=== PATIENT | male | born 1985 | race Caucasian/White ===

== ENCOUNTER 2023-10-26 19:42 | Emergency (ER) | payer OTHER, SELFPAY ==
[2023-10-26 19:42] VITALS: BMI 26.8
[2023-10-26 19:44] VITALS: BP 149/107
--- NOTE | 2023-10-26 20:55 | ED.GENMED ---
History of Present Illness
<Russel Coon PA-C - Last Filed: 10/27/23 01:11>
General
Chief Complaint: Head Injury
Time Seen by Provider: 10/26/23 20:39
Travel History
Have you had any contact with someone who has COVID-19?: No
Do you have any symptoms of coronavirus? Fever > 100 degrees, chills, cough, shortness of breath, sore throat, loss of taste or smell, muscle aches, or headache?: No
History of Present Illness
History of Present Illness:
38-year-old male with history of GERD and substance abuse currently on methadone presents to the emergency department after a mechanical fall while rollerskating. He fell backwards and struck his head and neck on the ground. He reports mild
headache and severe neck pain currently. He reports a brief episode of left upper extremity paresthesias that is now resolved. Denies any chest pain but does report shortness of breath, admits he is becoming increasingly anxious that his symptoms
and feels this may be triggering an asthma attack.
Past History
<Russel Coon PA-C - Last Filed: 10/27/23 01:11>
Past History
ED Past Medical History: Asthma and Other (Narcotic addiction)
ED Past Surgical History: None
Social History
Tobacco: Smoker
Alcohol: None
Drug: Former user
Personal:
Living: with family
Review of Systems
<Russel Coon PA-C - Last Filed: 10/27/23 01:11>
Review of Systems
Allergies reviewed?: Yes
All Other Systems: ROS reviewed and negative except as documented in HPI and ROS
Phy Exam
<Russel Coon PA-C - Last Filed: 10/27/23 01:11>
Physical Exam
Physical Exam:
GEN: Well appearing, NAD, WDWN
HEENT: Normocephalic and atraumatic , oral mucosa moist, no scleral icterus. Cervical spine exam performed patient in C-spine precautions, he has reproducible tenderness to the inferior midline cervical spine
Cardiac: Regular rate
Lung: No respiratory distress, no tachypnea
MSK: No gross deformity or injuries
Skin: Good color, no pallor or jaundice, no rashes
Neuro: AO x3; CN II-XII grossly intact. BUE strength 5/5 in all berg, sensation intact and symmetric. BLE strength 5/5 in all berg, sensation intact and symmetric
Psych: Calm, cooperative
Course
<Russel Coon PA-C - Last Filed: 10/27/23 01:11>
Orders/Labs/Results
Orders:
Orders
10/26/23 19:49
CT Head W/o Iv Contrast Urgent
Comment:
Reason For Exam: fall with head strike
Cervical Spine wo Contrast CT [CT Cervical Spine W/o Iv Contr] Urgent
Comment:
Reason For Exam: fall with head strike
10/26/23 20:56
CR Chest Portable - 1 View Urgent
Comment:
Reason For Exam: trauma
Reason Study Needs to be Portable: Other
10/26/23 21:08
Lorazepam [Ativan] 1 mg IV NOW STA
10/26/23 21:12
Complete Blood Count/With Diff Urgent
Comprehensive Metabolic Panel Urgent
10/26/23 21:52
Fentanyl Citrate/Pf [Sublimaze] 75 mcg IV NOW STA
Abnormal Lab Results
10/26/23
21:12
WBC 15.3 H 10^3/uL
(4.8-10.8)
RBC 4.61 L 10^6/uL
(4.70-6.10)
MPV 10.5 H fL
(7.4-10.4)
Abs Immat Gran (auto) 0.6 H 10^3/uL
(0-0.05)
Absolute Neuts (auto) 9.6 H 10^3/uL
(1.4-6.5)
Absolute Lymphs (auto) 3.9 H 10^3/uL
(1.2-3.4)
Absolute Monos (auto) 1.0 H 10^3/uL
(0.1-0.6)
Immature Gran % 4.1 H %
(0-0.5)
10/26/23 21:12
10/26/23 21:12
Vital Signs
Initial and Last Documented VS:
Initial Vital Signs
Temp Pulse Resp BP Pulse Ox
98.2 F 105 18 149/107 100
10/26/23 19:44 10/26/23 19:44 10/26/23 19:44 10/26/23 19:44 10/26/23 19:44
Last Documented Vital Signs
Temp Pulse Resp BP Pulse Ox
98.2 F 104 14 143/102 94
10/26/23 19:44 10/26/23 22:15 10/26/23 22:15 10/26/23 22:00 10/26/23 22:15
<Genie Montano MD - Last Filed: 10/26/23 22:04>
Orders/Labs/Results
Orders:
Orders
10/26/23 19:49
CT Head W/o Iv Contrast Urgent
Comment:
Reason For Exam: fall with head strike
Cervical Spine wo Contrast CT [CT Cervical Spine W/o Iv Contr] Urgent
Comment:
Reason For Exam: fall with head strike
10/26/23 20:56
CR Chest Portable - 1 View Urgent
Comment:
Reason For Exam: trauma
Reason Study Needs to be Portable: Other
10/26/23 21:08
Lorazepam [Ativan] 1 mg IV NOW STA
10/26/23 21:12
Complete Blood Count/With Diff Urgent
Comprehensive Metabolic Panel Urgent
10/26/23 21:52
Fentanyl Citrate/Pf [Sublimaze] 75 mcg IV NOW STA
Abnormal Lab Results
10/26/23
21:12
WBC 15.3 H 10^3/uL
(4.8-10.8)
RBC 4.61 L 10^6/uL
(4.70-6.10)
MPV 10.5 H fL
(7.4-10.4)
Abs Immat Gran (auto) 0.6 H 10^3/uL
(0-0.05)
Absolute Neuts (auto) 9.6 H 10^3/uL
(1.4-6.5)
Absolute Lymphs (auto) 3.9 H 10^3/uL
(1.2-3.4)
Absolute Monos (auto) 1.0 H 10^3/uL
(0.1-0.6)
Immature Gran % 4.1 H %
(0-0.5)
10/26/23 21:12
10/26/23 21:12
Vital Signs
Initial and Last Documented VS:
Initial Vital Signs
Temp Pulse Resp BP Pulse Ox
98.2 F 105 18 149/107 100
10/26/23 19:44 10/26/23 19:44 10/26/23 19:44 10/26/23 19:44 10/26/23 19:44
Last Documented Vital Signs
Temp Pulse Resp BP Pulse Ox
98.2 F 104 14 143/102 94
10/26/23 19:44 10/26/23 22:15 10/26/23 22:15 10/26/23 22:00 10/26/23 22:15
<Russel Coon PA-C - Last Filed: 10/27/23 01:11>
MDM/Problems Addressed
MDM/Problems Addressed:
Patient identified unfortunately to have a C7 burst type compression fracture. He has no focal neurologic deficits. I discussed the case initially with neurosurgery on-call who recommend transfer to [facility] for further evaluation as a
trauma patient, the patient declines transfer to [facility] and request [facility]. Discussed the case with trauma surgery at [facility] who accepts as a level 2 transfer. Remained clinically stable with no neurologic deficits in the emergency
department
<Russel Coon PA-C - Last Filed: 10/27/23 01:11>
*Critical Care Note
Total Time (30-74mins, 75-104mins- exclusive of procedures): Not Applicable
ED Attending Note
<Russel Coon PA-C - Last Filed: 10/27/23 01:11>
-
Portions of this chart may have been created with voice recognition software.� Occasional wrong word or��sound alike� substitutions may have occurred due to the inherent limitations of voice recognition software.
<Genie Montano MD - Last Filed: 10/26/23 22:04>
ED Attending Note
Patient seen and examined by attending physician: Yes
I performed the substantive portion of visit, reviewed & personally made and approve the management plan that is documented in note by myself or JAMAR.: Yes
ED Attending Note:
38-year-old male who was rollerskating, fell backwards, hitting the back of his head. He has noted neck discomfort ever since. He denies numbness, tingling, weakness, chest pain, shortness of breath.pt does have a mildheadache. On exam,pt in a
collar, PERRL, mmm. Motor 5/5 ue=le, sens intact, speech clear. C7 burst fx noted, no neuro sxs or findings. Continue collar/immobilization, [facility], pain control.
Discharge Plan
Departure
Patient Disposition: Acute Care Hospital
Date of Disposition: 10/26/23
Time of Disposition: 20:55
Discharge Problem:
Compression fracture of C7 vertebra
Prescriptions:
No Action
albuterol sulfate 1 PUFF HFA aerosol inhaler
1 puff inhalation R Q4HPRN PRN (Reason: Shortness of breath)
methadone [Methadose] 10 MG/ML concentrate
180 mg PO DAILY
Patient Comments:
12/11/2022: goes to [facility] in [place] [address]. Dispensary Hours [facility] [phone], [employer] [phone]
12/12/22: dose confirmed with [facility]
methadone [Methadose] 10 MG/ML concentrate
140 mg PO QPM
Patient Comments:
12/11/2022: goes to [facility] in [place] [address]. Dispensary Hours [facility] [phone], [employer] [phone]
12/12/22: dose confirmed with [facility]
albuterol sulfate 2.5 MG/3 ML solution for nebulization
2.5 mg inhalation R Q4HPRN PRN (Reason: short of breath, wheezing) Qty: 30 0RF
montelukast 10 mg Tablet
10 mg PO HS
prednisone 10 MG tablet
30 mg PO DAILY
Hospital Transfer
Other hospital: [facility]
I certify that the patient requires transfer: Yes
Discussed case with accepting physician: Lucy
Reason for transfer: higher level of care
Interventions
Interventions:
*Risk Screen - Suicide Last Done: 10/26/23 19:44
*General Assessment Last Done: 10/26/23 19:44
*Neglect/Abuse Screening Last Done: 10/26/23 19:44
*ED COVID-19 Vaccine History Last Done: 10/26/23 19:44
*Nursing Disposition Last Done: 10/26/23 22:30
ED- Neurological Assessment Last Done: 10/26/23 21:20
ED-Skin Assessment Last Done: 10/26/23 21:20
Discharge Date and Time
Discharge Date/Time: 10/26/23 22:31
[2023-10-26 21:11] VITALS: BP 158/103
[2023-10-26] MEDS: ATIVAN 1 MG IV (21:16)
[2023-10-26 21:22] LABS: % Basophils 0.5 % (0-2); % Eosinophils 0.7 % (0-6); % Immature Granulocytes 4.1 % (0-0.5); % Lymphocytes 25.5 % (20.5-51.1); % Monocytes 6.4 % (1.7-9.3); % Neutrophils 62.8 % (42.2-75.2); Absolute Basophils 0.1 10^3/uL (0-0.2); Absolute Eosinophils 0.1 10^3/uL (0-0.7); Absolute Immature Granulocytes 0.6 10^3/uL (0-0.05); Absolute Lymphocytes 3.9 10^3/uL (1.2-3.4); Absolute Neutrophils 9.6 10^3/uL (1.4-6.5); Hematocrit 41.7 % (39.0-52.0); Hemoglobin 13.9 g/dL (13.0-18.0); Mean Corp Hgb Conc. 33.3 g/dL (33.0-37.0); Mean Corpuscular Hgb 30.2 pg (27.0-31.0); Mean Corpuscular Volume 90.5 fL (80.0-94.0); Mean Platelet Volume 10.5 fL (7.4-10.4); Nucleated Red Blood Cells % 0 % (-); Platelet Count 220 10^3/uL (130-400); Red Blood Cell Count 4.61 10^6/uL (4.70-6.10); Red Cell Dist. Width 13.4 % (11.5-14.5); White Blood Cell Count 15.3 10^3/uL (4.8-10.8)
[2023-10-26 21:30] VITALS: BP 158/107
[2023-10-26 21:41] VITALS: BP 156/98
[2023-10-26 21:44] LABS: ALT (SGPT) 32 U/L (0-50); AST (SGOT) 33 U/L (17-59); Albumin 4.3 g/dl (3.5-5.0); Alkaline Phosphatase 67 U/L (38-126); Blood Urea Nitrogen 14 mg/dl (9-20); Calcium 9.7 mg/dl (8.4-10.2); Carbon Dioxide 30 mmol/L (22-30); Chloride 98 mmol/L (98-107); Estimated Creatinine Clearance > 125 ml/min; Glucose 84 mg/dl (70-99); Potassium 3.8 mmol/L (3.5-5.1); Sodium 138 mmol/L (135-145); Total Bilirubin 0.4 mg/dl (0.2-1.3); eGFR > 60.00
[2023-10-26 22:00] VITALS: BP 143/102
[2023-10-26] MEDS: SUBLIMAZE 75 MCG IV (22:04)
== END 2023-10-26 22:31 | disposition short-term general hospital (02) ==
LOC: EMR 19:42
PROVIDERS: Physician Assistant; EMERGENCY PHYSICIAN Emergency Medicine; FAMILY PHYSICIAN Internal Medicine
DX: S12.690A Other displaced fracture of seventh cervical vertebra, initial encounter for closed fracture (principal); V00.121A Fall from non-in-line roller-skates, initial encounter; Y93.51 Activity, roller skating (inline) and skateboarding; F17.200 Nicotine dependence, unspecified, uncomplicated
CPT/HCPCS: 99285; 96374; 96375; 70450; 71045; 72125; 80053; 85025

== ENCOUNTER 2024-11-16 19:28 | Inpatient (IN) | payer OTHER, SELFPAY ==
[2024-11-16] VITALS (7 sets, daily range): BP systolic 102–139; BP diastolic 66–88; BMI 27.1; BMI 26.7
[2024-11-16 16:54] LABS: % Basophils 0.2 % (0-2); % Eosinophils 0.2 % (0-6); % Immature Granulocytes 0.7 % (0-0.5); % Lymphocytes 17.5 % (20.5-51.1); % Monocytes 8.2 % (1.7-9.3); % Neutrophils 73.2 % (42.2-75.2); Absolute Immature Granulocytes 0.1 10^3/uL (0-0.05); Absolute Lymphocytes 2.9 10^3/uL (1.2-3.4); Absolute Monocytes 1.4 10^3/uL (0.1-0.6); Absolute Neutrophils 12.3 10^3/uL (1.4-6.5); Hematocrit 40.3 % (39.0-52.0); Hemoglobin 13.6 g/dL (13.0-18.0); Mean Corp Hgb Conc. 33.7 g/dL (33.0-37.0); Mean Corpuscular Hgb 30.7 pg (27.0-31.0); Mean Platelet Volume 10.5 fL (7.4-10.4); Nucleated Red Blood Cells % 0 % (-); Platelet Count 179 10^3/uL (130-400); Red Blood Cell Count 4.43 10^6/uL (4.70-6.10); Red Cell Dist. Width 14.3 % (11.5-14.5); White Blood Cell Count 16.7 10^3/uL (4.8-10.8)
[2024-11-16 17:05] LABS: ALT (SGPT) 27 U/L (0-50); AST (SGOT) 25 U/L (17-59); Albumin 4.8 g/dl (3.5-5.0); Alkaline Phosphatase 59 U/L (38-126); Blood Urea Nitrogen 11 mg/dl (9-20); Calcium 9.5 mg/dl (8.4-10.2); Carbon Dioxide 28 mmol/L (22-30); Chloride 93 mmol/L (98-107); Glucose 82 mg/dl (70-99); Potassium 4.1 mmol/L (3.5-5.1); Sodium 132 mmol/L (135-145); Total Bilirubin 1.2 mg/dl (0.2-1.3); Total Protein 7.3 g/dl (6.3-8.2); eGFR > 60.00
[2024-11-16 17:11] LABS: COVID-19 Antigen Negative (Negative)
--- NOTE | 2024-11-16 17:36 | ED.GENMED ---
History of Present Illness
General
Chief Complaint: Cold/Flu/URI Symptoms
Source: patient and family
Exam Limitations: none
Time Seen by Provider: 11/16/24 17:12
Nursing documentation reviewed up to this point in time: agreed with
History of Present Illness
History of Present Illness:
Patient with history of asthma, presents to ED secondary to 1 week history of persistent shortness of breath, along with 2-day history of persistent cough and decreased appetite. Denies fever or chills. Denies chest pain. Denies nausea, vomiting,
or diarrhea. Denies rash. Denies recent travel. Denies sick contact. Denies leg pain or swelling. Upon arrival, patient found to be mildly with initial pulse ox 90% on room air, and placed on supplemental oxygen. Patient states that his pulse
ox at home was low as 86%.
Past History
Past History
ED Past Medical History: Asthma and Other (Narcotic addiction)
ED Past Surgical History: None
Social History
Tobacco: Smoker
Alcohol: None
Drug: Former user
Personal:
Living: with family
Review of Systems
Review of Systems
Allergies reviewed?: Yes
All Other Systems: ROS reviewed and negative except as documented in HPI and ROS
Constitutional: Reports no symptoms; Denies fever or chills
EENT: Reports no symptoms
Respiratory: Reports cough and trouble breathing
Cardiac: Reports no symptoms
ABD/GI: Reports no symptoms
Musculoskeletal: Reports no symptoms
Skin: Reports no symptoms
Neurological: Reports no symptoms
Phy Exam
Physical Exam
Physical Exam:
Physical Exam
General: mild distress, weak appearing. afebrile. hypoxic
Head: nc/at. eomi
Neck: supple. no meningeal signs. normal posterior pharynx
Heart: s1/s2 regular rate and rhythm, no murmur.
Lungs: mild respiratory distress. diffuse wheezing bilaterally
Abdomen: normal bowel sounds. not tender.
Neuro: alert and oriented x 3. no focal neurological deficits
Skin: no rash
Psychiatric: well kept. interactive and cooperative
Extremities: no edema. no calf tenderness.
Course
Orders/Labs/Results
Orders:
Orders
11/16/24 Breakfast
Regular
At Your Request: Full Participation
Does patient need a safe tray?: No
11/16/24 16:27
CR Chest - 2 Views Urgent
Comment:
Reason For Exam: cough/sob
11/16/24 16:29
COVID-19 Antigen Urgent
Source: Nasal Swab
Complete Blood Count/With Diff Urgent
Comprehensive Metabolic Panel Urgent
Influenza A+B Rapid Molecular Urgent
JENNIFER Source: Nasal Swab
Specimen Description:
11/16/24 17:34
Azithromycin 500 mg/250 ml [Zithromax Infusion] 500 mg in 250 ml IV NOW
CefTRIAXone [Rocephin] 1,000 mg IV NOW STA
11/16/24 17:35
0.9% Sodium Chloride 500 ml [Nss] 500 ml IV BOLUS
Albuterol Nebs [Ventolin Nebules] 2.5 mg INH R NOW STA
Dexamethasone Sod Phosphate [Decadron] 6 mg IV NOW STA
Guaifenesin/Codeine Solution [Robitussin AC] 10 ml PO NOW STA
Ipratropium/Albuterol Sulfate [Duoneb] 3 ml INH R NOW STA
11/16/24 17:40
Acetaminophen [Tylenol] 1,000 mg PO NOW STA
11/16/24 18:03
Lactic Acid Q4H
Comment: CANCEL 2nd LACTIC ACID IF 1st LACTIC ACID IS LESS THAN 2
Blood Culture Q30M
JENNIFER Source: Blood/Venous
Specimen Description:
11/16/24 18:07
Sterile Water [Sterile Water For Injection] 10 ml .ROUTE .[facility]
11/16/24 18:20
Blood Culture Q30M
JENNIFER Source: Blood/Venous
Specimen Description:
11/16/24 18:33
Admit/Transfer Patient As Directed
Co-Sign Provider:
Level of Care: Inpatient admission
Assign to:: Telemetry
Physician / Group: [facility]
Diagnosis: Pneumonia, Asthma Exacerbation
Reason for Telemetry: Arrhythmia
Date to Stop Telemetry: 11/19/24
Time to Stop Telemetry: 11:00
Reason for Hospitalization: IV steroids, IV abx
Expected length of stay greater than two midnights?: Yes
ELOS- Estimated Length of Stay in days: 3
I certify the patient meets the requirements for IP care: Yes
PRN Pain Medication Management As Directed
May give lesser potent ordered pain med per pt: Yes
preference::
Protocol:: Medication orders for pain may be administered in a
manner that supports deferring to patient preference
when the pt is:
- Requesting an ordered lesser potent pain medication.
Least to most potent pain medications are defined
as: acetaminophen < NSAID < tramadol < opioids
(morphine, oxycodone, hydromorphone).
- Requesting a lesser dose of the same medication IF
ORDERED.
- Requesting a less intrusive route of administration
if both routes are prescribed by the provider (PO <
IV).
11/16/24 18:35
Sputum Culture [Respiratory Culture/Gram Stain] Urgent
JENNIFER Source: Sputum
Specimen Description:
Date Specimen was Collected: 11/16/24
Time Specimen was Collected: 20:06
11/16/24 18:36
Code Status As Directed
Resuscitation Status: Full Code
11/16/24 18:39
Ondansetron Injectable [Zofran] 4 mg IV NOW STA
11/16/24 20:07
Legionella Urinary Antigen Urgent
JENNIFER Source: Urine
Specimen Description:
Strep pneumoniae Antigen Urgent
JENNIFER Source: Urine
Specimen Description:
11/16/24 20:13
Acetaminophen [Tylenol] 650 mg PO Q4HPRN PRN
Albuterol Nebs [Ventolin Nebules] 2.5 mg INH R Q4HPRN PRN
Budesonide [Pulmicort] 0.5 mg INH R BID
Doxycycline [Vibramycin] 100 mg PO Q12
Guaifenesin [Mucinex] 600 mg PO Q12
Ipratropium/Albuterol Sulfate [Duoneb] 3 ml INH R QID
11/16/24 20:13
PULMONARY CONSULT Routine
Consulting Provider: Moiz Hebert
Was physician already notified: Yes
Activity As Directed
Activity Level: Out of Bed-Early Mobility
I&O [Intake/ Output] As Directed
Frequency: q12h
Vital Signs As Directed
Frequency: Per unit guidelines
Weight As Directed
Frequency: Daily
Oxygen Therapy [O2 Therapy] [RESP] Routine
Titrate/Wean O2 to maintain O2 sat greater than (%): 90
Pulse Ox/cont/shift [RESP] Routine
Quantity: 1
DX Deep Vein Thrombosis Video Routine
11/16/24 22:00
Montelukast Sodium [Singulair] 10 mg PO HS
11/17/24 02:00
Dexamethasone Sod Phosphate [Decadron] 6 mg IV Q8H
11/17/24 06:00
Basic Metabolic Panel IN AM
Complete Blood Count/No Diff IN AM
11/17/24 08:00
Methadone HCl [Methadone 100 mg/10 ml] 195 mg PO DAILY
11/17/24 18:00
CefTRIAXone [Rocephin] 1,000 mg IV Q24H
Enoxaparin Sodium [Lovenox] 40 mg SC QPM
Methadone HCl [Methadone 100 mg/10 ml] 165 mg PO QPM
11/19/24 11:00
DC Protocol for Telemetry ONCE
Abnormal Lab Results
11/16/24
16:29
WBC 16.7 H 10^3/uL
(4.8-10.8)
RBC 4.43 L 10^6/uL
(4.70-6.10)
MPV 10.5 H fL
(7.4-10.4)
Abs Immat Gran (auto) 0.1 H 10^3/uL
(0-0.05)
Absolute Neuts (auto) 12.3 H 10^3/uL
(1.4-6.5)
Absolute Monos (auto) 1.4 H 10^3/uL
(0.1-0.6)
Immature Gran % 0.7 H %
(0-0.5)
Lymphocytes % 17.5 L %
(20.5-51.1)
Sodium 132 L mmol/L
(135-145)
Chloride 93 L mmol/L
(98-107)
11/16/24 16:29
11/16/24 16:29
Vital Signs
Initial and Last Documented VS:
Initial Vital Signs
Temp Pulse Resp BP Pulse Ox
98.7 F 110 16 125/88 91
11/16/24 16:19 11/16/24 16:19 11/16/24 16:19 11/16/24 16:19 11/16/24 16:19
Last Documented Vital Signs
Temp Pulse Resp BP Pulse Ox
98.1 F 90 17 122/73 96
11/16/24 20:20 11/16/24 20:39 11/16/24 20:39 11/16/24 20:20 11/16/24 20:39
MDM/Problems Addressed
MDM/Problems Addressed:
History, exam, and chest x-ray consistent with pneumonia. In light of patient's significant wheezing, respiratory distress, and hypoxia, requiring supplemental oxygen, patient will be admitted for further eval treatment, including IV antibiotics,
supplemental oxygen, as well as neb treatment.
*Critical Care Note
Total Time (30-74mins, 75-104mins- exclusive of procedures): Not Applicable
ED Attending Note
-
Portions of this chart may have been created with voice recognition software.� Occasional wrong word or��sound alike� substitutions may have occurred due to the inherent limitations of voice recognition software.
Discharge Plan
Departure
Patient Disposition: Admit
Date of Disposition: 11/16/24
Time of Disposition: 17:36
Admit to: Telemetry
Presentation/result/management discussed w/ accepting MD/DO: Hospitalist
Discharge Problem:
Pneumonia
Interventions
Interventions:
*Risk Screen - Suicide Last Done: 11/16/24 16:19
*General Assessment Last Done: 11/16/24 17:50
*Neglect/Abuse Screening Last Done: 11/16/24 16:19
*ED- Fall Risk Assessment Last Done: 11/16/24 17:52
*ED COVID-19 Vaccine History Last Done: 11/16/24 17:52
*Nursing Disposition Last Done: 11/16/24 20:10
ED- Pulmonary Assessment Last Done: 11/16/24 19:15
Discharge Date and Time
Discharge Date/Time: 11/16/24 20:29
[2024-11-16] MEDS: NSS 500 IV (18:09)
[2024-11-16] MEDS: DUONEB 3 ML INH ×2 (18:09→20:39)
[2024-11-16] MEDS: VENTOLIN NEBULES 2.5 MG INH (18:09)
[2024-11-16] MEDS: DECADRON 6 MG IV (18:10)
[2024-11-16] MEDS: ROBITUSSIN AC 10 ML PO (18:10)
[2024-11-16] MEDS: TYLENOL 1000 MG PO (18:10)
[2024-11-16 18:21] LABS: Lactic Acid 1.2 mmol/L (0.7-2.0)
[2024-11-16] MEDS: ROCEPHIN 1000 MG IV (18:24)
[2024-11-16] MEDS: ZITHROMAX INFUSION 250 IV (18:25)
--- NOTE | 2024-11-16 18:26 | W.PN.UPDATE ---
Update Note
Progress Note Update
I saw and examined the patient.
The LABORER SALVAGE or PA's note was reviewed and I agree with the note.
Comment:
Mr. Adams is a 39-year-old male with a medical history of moderate persistent asthma (on 30 mg of prednisone daily at baseline), NSAID exacerbated respiratory disease, and methadone maintenance therapy who presents with progressively worsening
shortness of breath and productive cough. His shortness of breath began approximately 1 week prior to arrival and his cough began 2 days ago and is productive of brownish-green sputum. He has been taking increasing amounts of his home prednisone
and using his rescue inhaler more frequently over the past week due to shortness of breath. He has not followed up with his outpatient strike planning applications at [facility] in over 1 year. He denies fever or chills.
In the ED, he was afebrile and normotensive but tachycardic and mildly hypoxic with a pulse ox of 90% on room air. He was placed on supplemental oxygen. Labs revealed a leukocytosis of almost 17,000 (although he is on chronic steroids) and a mild
hyponatremia with a serum sodium of 132. Respiratory panel was negative for influenza and COVID. He was started on antibiotics with ceftriaxone and azithromycin. He was given dose of dexamethasone 6 mg IV and bolused 1 L normal saline. He has
been admitted for further evaluation and management of community-acquired pneumonia and asthma exacerbation.
Gen-AAOx3, NAD
HEENT-NC, AT, anicteric, clear oral mm
Neck-supple
CV-reg, no M, +S1/S2
Lungs-diffuse inspiratory and expiratory wheezes bilaterally
Abd-soft, NT, ND
Musculoskeletal-no edema, no deformity
Skin-warm and dry
Neuro-grossly non-focal
Psych-calm, cooperative
Acute hypoxic respiratory failure:
-Secondary to community-acquired pneumonia and asthma exacerbation
-Continue antibiotic treatment with ceftriaxone and doxycycline
-Supplemental oxygen via nasal cannula as needed, currently low flow, titrate as able
-Continue scheduled and as needed nebulizers
Community-acquired pneumonia:
-Chest imaging shows right lower lobe pneumonia
-Did not feel he is septic, leukocytosis likely due to chronic steroid use, mild tachycardia at least partially contributed to by frequent JOSEMANUEL use, lactate within normal limits
-Continue antibiotic coverage with ceftriaxone and doxycycline
-Follow-up sputum culture and strep pneumo and Legionella urinary antigens
Asthma exacerbation:
-Likely has moderate to severe persistent asthma at baseline
-Has not followed up with a strike planning applications in over a year, will ask pulmonology to see him during this admission considering severe bronchospasm
-Continue IV steroids for now and scheduled nebulizers, additional nebulizer treatments as needed
-Avoid NSAIDs considering history of NSAID exacerbated respiratory disease ([facility])
Methadone maintenance therapy:
-Takes methadone twice daily for treatment of substance abuse disorder
-Continue home regimen
Hyponatremia:
-Mild, clinically insignificant
-Has been given IV fluids, will monitor
CODE STATUS: Full code
--- NOTE | 2024-11-16 18:30 | HPS.HSE ---
Addendum entered and electronically signed by Russel Ferrari DO 11/16/24 19:00:
I saw and examined the patient.
The PA's (Tamara Vazquez) note was reviewed and I agree with the note.
Comment: See my update note for additional information
Original Note:
Family Physician
-
Family Physician: NOT KNOW UNKNOWN - PT DOES
Chief Complaint
-
Cough and Shortness of Breath
History of Present Illness
Patient is a 39 y/o male past medical history of asthma on chronic steroids, and prior substance abuse with opioid dependence on methadone who presents with increased shortness of breath and cough. Patient reports increasing shortness of breath
since last week. He reports taking several extra doses of prednisone at home and using his nebulizer more frequently due to symptoms. He reports cough that is productive of yellow mucus. Family at bedside states he felt warm, but no recorded
fevers. Today patient tried to go work, but symptoms were much worse. When he checked his oxygen level it was 89% on room air prompting him to come to the emergency deparmtent for evaluation.
Medical History
Past Medical History
Past Medical History: Reports Other
Additional Past Medical History:
Asthma
Depression
Substance Abuse / Opioid Dependence
Past Surgical History: Reports None
Social History
Tobacco: Former Smoker (Quit 4 years ago prior 20-year 2 pack a day)
Alcohol: None
Drug: Former User
Personal:
Living: With Family
Family History
Family History: Not pertinent
Allergies / Home Medications
Allergies reflects when Allergies were last updated in [employer].
Home Medications with original date entered in [employer]
Allergy/Medication List:
Allergies
Allergy/AdvReac Type Severity Reaction Status Date / Time
NSAIDS (Non-Steroidal Allergy Shortness Verified 11/16/24 16:23
Anti-Inflamma of Breath
haloperidol [From Haldol] AdvReac Muscle Verified 11/16/24 16:23
spasms,
lock-jaw
Home Medications
albuterol sulfate 90 mcg/actuation aerosol inhaler 2 puff inhalation R Q4HPRN PRN Shortness of breath 06/10/20
methadone 10 mg/mL oral concentrate (Methadose) 165 mg PO QPM Substance abuse disorder 06/10/20
methadone 10 mg/mL oral concentrate (Methadose) 195 mg PO DAILY Substance abuse disorder 06/10/20
albuterol sulfate 2.5 mg/3 mL (0.083 %) solution for nebulization 2.5 mg (3 mL) inhalation R Q4HPRN PRN short of breath, wheezing ##30 12/04/21
montelukast 10 mg tablet 10 mg PO HS 10/26/23
prednisone 10 mg tablet 30 mg PO DAILY Anti-inflammatory 10/26/23
mometasone-formoterol HFA 200 mcg-5 mcg/actuation aerosol inhaler (Dulera) 2 puff inhalation BID 11/16/24
tiotropium bromide 2.5 mcg/actuation mist for inhalation (Spiriva Respimat) 2 puff inhalation DAILY 11/16/24
Review of Systems
-
A 12 point ROS was completed and negative except as noted: Yes
Constitutional: Denies Fever
Respiratory: Reports See HPI
Cardiac: Denies Chest Pain (Reports Chest tightness)
Physical Exam
Vital Signs
Vital Signs
Temp Pulse Resp BP Pulse Ox
98.7 F 110 16 125/88 91
11/16/24 16:19 11/16/24 16:19 11/16/24 16:19 11/16/24 16:19 11/16/24 16:19
Physical Exam
General: Well Developed, Well Nourished and Conversant
HEENT: Anicteric, Moist mucous membranes and Oxygen (Nasal Cannula)
Respiratory: Wheezes (Diffuse inspiratory and expiratory )
Cardiac: S1/S2, Regular Rhythm and Tachycardia
GI: Soft and Non Distended
Rectal: Deferred by Provider
Musculoskeletal: No Clubbing, No Cyanosis and No Edema
Skin: Warm and Dry
Neuro: Awake, Alert, Oriented and Nonfocal/grossly intact
Psych: Calm
Laboratory Results
-
11/16/24 16:29
11/16/24 16:29
Laboratory Results
Lactic Acid 1.2 mmol/L (0.7-2.0) 11/16/24 18:03
Total Bilirubin 1.2 mg/dl (0.2-1.3) 11/16/24 16:
AST 25 U/L (17-59) 11/16/24 16:29
ALT 27 U/L (0-50) 11/16/24 16:29
Alkaline Phosphatase 59 U/L (38-126) 11/16/24 16:29
Data Reviewed
-
Diagnostic Radiology: Report Reviewed by me
Lab Data: Labs Reviewed by me
Old Records: Reviewed
Impression/Plan
-
Acute Hypoxic Respiratory Insufficiency secondary to Acute Asthma Exacerbation +/- Pneumonia
-Consult Pulmonary
-Continue supplemental oxygen
-Continue Decadron 6mg q8h
-Continue DuoNeb QID and PRN
-Continue Pulmicort Neb in place of home Dulera
-Continue Mucinex
-Continue ceftriaxone and doxycycline
-Check sputum culture, urine strep and legionella antigen
Hx Substance Abuse with Opioid Dependence
-Continue Methadone
DVT proph: Lovenox
Code Status: Full Code
[2024-11-16] MEDS: ZOFRAN 4 MG IV (18:42)
--- NOTE | 2024-11-16 19:25 | EDRN ---
Received patient on stretcher. Patient stated that he has not been feeling well for the past week and is having increased trouble breathing. Sttaed that his pulse ox at home on room air was 88-89%. stated that the patient is on daily doses of
Prednisone and has been taking more than his normal dose of 30mg. Patient stated that he took 60mg one day then took 90mg. stated 'He uses his rescue inhaler all day long.' Patient has not seen his pulmonary doctor in1-2 years. PCP has been
prescribing his inhalers.
--- NOTE | 2024-11-16 20:20 | PTCARENOTE ---
Pt arrived from ED via stretcher and ambulated to bed with at the bedside. Pt is AAOx3, VSS, and w/o complaints of pain. Pt is oriented to room, with call cardona within reach.
[2024-11-16] MEDS: PULMICORT 0.5 MG INH (20:39)
[2024-11-16] MEDS: METHADONE 100 MG/10 ML 165 MG PO (21:59)
[2024-11-16] MEDS: VIBRAMYCIN 100 MG PO (22:00)
[2024-11-16] MEDS: SINGULAIR 10 MG PO (22:00)
[2024-11-16] MEDS: MUCINEX 600 MG PO (22:00)
[2024-11-17] MEDS: DECADRON 6 MG IV ×3 (01:40→17:26)
[2024-11-17 03:14] VITALS: BP 107/70
[2024-11-17 06:00] VITALS: BMI 26.7
[2024-11-17 06:38] LABS: Hematocrit 36.5 % (39.0-52.0); Mean Corp Hgb Conc. 32.9 g/dL (33.0-37.0); Mean Corpuscular Hgb 30.5 pg (27.0-31.0); Mean Corpuscular Volume 92.6 fL (80.0-94.0); Mean Platelet Volume 10.7 fL (7.4-10.4); Platelet Count 166 10^3/uL (130-400); Red Blood Cell Count 3.94 10^6/uL (4.70-6.10); Red Cell Dist. Width 13.8 % (11.5-14.5); White Blood Cell Count 10.8 10^3/uL (4.8-10.8)
[2024-11-17 07:28] LABS: Blood Urea Nitrogen 16 mg/dl (9-20); Calcium 8.8 mg/dl (8.4-10.2); Carbon Dioxide 27 mmol/L (22-30); Chloride 99 mmol/L (98-107); Estimated Creatinine Clearance > 125 ml/min; Glucose 148 mg/dl (70-99); Potassium 4.6 mmol/L (3.5-5.1); Sodium 133 mmol/L (135-145); eGFR > 60.00
[2024-11-17] MEDS: DUONEB 3 ML INH ×4 (07:38→19:25)
[2024-11-17] MEDS: PULMICORT 0.5 MG INH ×2 (07:38→19:25)
[2024-11-17 07:55] VITALS: BP 121/71
[2024-11-17] MEDS: VIBRAMYCIN 100 MG PO ×2 (08:49→19:54)
[2024-11-17] MEDS: METHADONE 100 MG/10 ML 195 MG PO (08:49)
[2024-11-17] MEDS: MUCINEX 600 MG PO ×2 (08:50→19:54)
--- NOTE | 2024-11-17 10:02 | CON.PUL ---
Consultation
Consultation Request
Date/Time Consultation Requested: 11/17/2024-8 AM
Date/Time Consultation Performed: 11/17/2024-8:30 AM
Requesting Provider: Hospitalist
Performing Provider: Dr. Hazel
Reason for Consultation: Shortness of breath/asthma
Medical History
-
Chief Complaint: Shortness of breath and wheezing
History of Present Illness:
39-year-old male with history of chronic asthma as well as obstructive sleep apnea and prior substance abuse with opioid dependence on chronic methadone presented with increasing shortness of breath and cough found to have significant asthma
exacerbation-pulmonary consulted for asthma exacerbation 11/17/2024. He is feeling somewhat improved overnight. He continues to have wheezing, chest congestion, minimally productive cough, no hemoptysis, pleurisy, abdominal pain, nausea, focal
weakness or leg swelling. He is on CPAP at night but not sure what level. He is also followed by medication aid in the [place] area maintained on Dulera, Spiriva, and albuterol as needed as well as frequent prednisone use.
Past Medical History
Past Medical History: None (Asthma-moderate persistent-on Dulera/Spiriva/albuterol-followed at [place]. Substance abuse in the past/opiate dependence on chronic methadone. Obstructive sleep apnea on CPAP. Depression. Former [id number]-year
quit 4 years ago)
Social History
Tobacco: Former Smoker ([id number] quit 4 years ago)
Alcohol: None
Drug: Former User
Personal:
Living: With Family
Occupational Exposures: No known asbestos exposure
Environmental Exposures: No known tuberculosis exposure
Family History
Family History: Reviewed & Not Pertinent
Allergies / Home Medications
Allergies
Allergy/AdvReac Type Severity Reaction Status Date / Time
haloperidol [From Haldol] Allergy Muscle Verified 11/16/24 20:14
spasms,
lock-jaw
NSAIDS (Non-Steroidal Allergy Shortness Verified 11/16/24 16:23
Anti-Inflamma of Breath
Home Medications
�Medication �Instructions �Recorded �Confirmed �Last Taken �Type
albuterol sulfate 90 mcg/actuation 2 puff inhalation R Q4HPRN PRN 06/10/20 11/16/24 1 Day Ago History
aerosol inhaler Shortness of breath ~12/11/22
methadone 10 mg/mL oral 165 mg PO QPM Substance abuse 06/10/20 11/16/24 12/11/22 18:00 History
concentrate (Methadose) disorder
methadone 10 mg/mL oral 195 mg PO DAILY Substance abuse 06/10/20 11/16/24 12/11/22 06:30 History
concentrate (Methadose) disorder
albuterol sulfate 2.5 mg/3 mL 2.5 mg (3 mL) inhalation R Q4HPRN 12/04/21 11/16/24 1 Day Ago Rx
(0.083 %) solution for nebulization PRN short of breath, wheezing ##30 ~12/11/22
montelukast 10 mg tablet 10 mg PO HS 10/26/23 11/16/24 Unknown History
prednisone 10 mg tablet 30 mg PO DAILY Anti-inflammatory 10/26/23 11/16/24 Unknown History
mometasone-formoterol HFA 200 2 puff inhalation BID 11/16/24 11/16/24 Unknown History
mcg-5 mcg/actuation aerosol
inhaler (Dulera)
tiotropium bromide 2.5 2 puff inhalation DAILY 11/16/24 11/16/24 Unknown History
mcg/actuation mist for inhalation
(Spiriva Respimat)
Review of Systems
-
Unable to Obtain full review of systems at this time due to: Other (Per HPI)
Vitals / Labs / Diagnostic Testing
Vital Signs
Temp Pulse Resp BP Pulse Ox
97.8 F 69 18 121/71 94
11/17/24 07:55 11/17/24 07:55 11/17/24 07:55 11/17/24 07:55 11/17/24 07:55
Lab Data
11/17/24 05:47
11/17/24 05:47
Microbiology
11/16/24 16:29 Nasal Swab Influenza Types A & B (DESIRE) - Final
Negative for Influenza A & B, NAAT
Negative results must be combined with clinical observations
and patient history.
Nucleic Acid Amplification test (NAAT)performed on the
[employer] platform.
Diagnostic Testing:
Physical Exam
-
Exam:
Well-nourished and well-developed in no apparent distress
HEENT-atraumatic, normocephalic
Neck-supple, no JVD, no bruit
Heart-regular rate and rhythm-no murmurs, rubs or gallops
Chest with diminished breath sounds, prolonged expiratory time, expiratory wheezes, few rhonchi and no crackles
Back without tenderness
Abdomen-soft, nontender, nondistended, no hepatosplenomegaly
Extremities-no cyanosis, clubbing, edema and good peripheral pulses
Integument-intact, no rashes, lesions or ecchymosis, tattoos throughout body
Neurology-alert and oriented, nonfocal motor and sensory exam
Assessment
-
39-year-old male with history of chronic asthma as well as obstructive sleep apnea and prior substance abuse with opioid dependence on chronic methadone presented with increasing shortness of breath and cough found to have significant asthma
exacerbation-pulmonary consulted for asthma exacerbation 11/17/2024.
Asthma exacerbation
Leukocytosis
Etuxcc-uyxnrkxsty-rpzlturhbk 12.0
Conditions present prior to admission:
Asthma-moderate persistent-on Dulera/Spiriva/albuterol-followed at [place].
Substance abuse in the past/opiate dependence on chronic methadone.
Obstructive sleep apnea on CPAP.
Depression.
Former [id number]-year quit 4 years ago
Plan
Admit patient to monitored bed with severe asthma exacerbation-status asthmaticus
Continue to closely monitor for progression of severe exacerbation-
Respiratory rate >30
Tachycardia >120
accessary muscle use
Inability to speak full sentences
Inability be supine
Pulsus paradox, etc.
Monitor PEF
Obtain ABG if necessary to assess for hypercapnia
Supplemental oxygen as needed
High flow oxygen if needed
CPAP continues at night-he will obtain home settings
Inhaled beta agonist
Inhaled muscarinic antagonist
Budesonide nebulizers
Systemic steroids-Decadron 6 mg IV every 8 hours
Continue Singulair
Mucolytic'p-Vngmtss-bdzqvhufp
Consider magnesium sulfate 2 g IV over 20 minutes
Extreme cases consider IV ketamine-hold off
Consider Heliox 70/30 or 80/20-hold off
Check cultures
Sputum culture if able
Empiric antibiotics-ceftriaxone and doxycycline
Methadone chronically
Eventually obtain allergy testing, IgE level, eosinophils, etc.
Consider Biologics such as Xolair -anti-IgE, Nucala-IL-5 inhibitor, Mficsjn-AQ-1 inhibitor, or Dupixent-I L4/13 inhibitor or Tezspire
DVT prophylaxis-on Lovenox
Nutrition
Early mobilization
Outpatient pulmonary/sleep disorders [id number] reports that he follows up in the [place] area-consider Biologics in this frequent steroid dependent exacerbating asthmatic
Diagnostic data:
Chest x-ray 12/11/22-NAD
Chest x-ray 10/26/2023-unremarkable chest
Chest x-ray 11/16/2024-mild subpleural opacification right lower lobe possible mild pneumonia or atelectasis
CT chest 11/30/2022-no pulmonary embolism, mild hazy interstitial airway disease in the right upper lobe and right lower lobe new compared to 11/2021
Data Reviewed
-
EKG: Report reviewed by me
Radiology: Report reviewed by me
CT Scan: Report reviewed by me
Medical Tests (Nuc Med, Echo etc): Report reviewed by me
Labs: Labs reviewed by me
Total Time Spent with Patient (in minutes): 55
[2024-11-17] MEDS: TIGAN 200 MG IM (10:37)
[2024-11-17 11:55] VITALS: BP 109/69
--- NOTE | 2024-11-17 14:03 | W.PN.HOSP.TC ---
Today's Communication/Plan
-
Assessment / Plan
Assessment / Plan
Gen-AAOx3, NAD
HEENT-NC, AT, anicteric, clear oral mm
Neck-supple
CV-reg, no M, +S1/S2
Lungs- expiratory wheezes bilaterally
Abd-soft, NT, ND
Musculoskeletal-no edema, no deformity
Skin-warm and dry
Neuro-grossly non-focal
Psych-calm, cooperative
Mr. Adams is a 39-year-old male with a medical history of moderate persistent asthma (on 30 mg of prednisone daily at baseline), NSAID exacerbated respiratory disease, and methadone maintenance therapy who presents with progressively worsening
shortness of breath and productive cough. In the ED, he was afebrile and normotensive but tachycardic and mildly hypoxic with a pulse ox of 90% on room air. He was placed on supplemental oxygen. Labs revealed a leukocytosis of almost 17,000
(although he is on chronic steroids) and a mild hyponatremia with a serum sodium of 132. Respiratory panel was negative for influenza and COVID. He was started on antibiotics with ceftriaxone and azithromycin. He was given dose of dexamethasone 6
mg IV and bolused 1 L normal saline. He has been admitted for further evaluation and management of community-acquired pneumonia and asthma exacerbation.
Acute hypoxic respiratory failure:
-Secondary to community-acquired pneumonia and asthma exacerbation
-Improving
-Continue antibiotics, steroids, breathing treatments
-Supplemental oxygen via nasal cannula as needed, currently low flow, titrate as able
Community-acquired pneumonia:
-Chest imaging shows right lower lobe pneumonia
-Leukocytosis improving
-Did not feel he is septic, leukocytosis likely due to chronic steroid use and hemoconcentration, mild tachycardia at least partially contributed to by frequent JOSEMANUEL use, lactate within normal limits
-Continue antibiotic coverage with ceftriaxone and doxycycline
-Follow-up sputum culture and strep pneumo and Legionella urinary antigens
Asthma exacerbation:
-Likely has moderate to severe persistent asthma at baseline
-Has not followed up with a biomedical equipment specialist in over a year, pulmonology is following during this admission
-Continue IV steroids for now and scheduled nebulizers, additional nebulizer treatments as needed
-Avoid NSAIDs considering history of NSAID exacerbated respiratory disease (NERD)
-Would recommend outpatient allergy testing, possibly starting on Biologics
Methadone maintenance therapy:
-Takes methadone twice daily for treatment of substance abuse disorder
-Continue home regimen
Hyponatremia:
-Mild, stable, clinically insignificant
-Has been given IV fluids, will monitor
Anemia:
-Appears somewhat chronic, currently close to baseline with hemoglobin of 12 today after fluids yesterday
-No evidence of bleeding
-Will monitor
CODE STATUS: Full code
Anticipated Discharge: 24 - 48 hours
Subjective/Interval History
-
Date of Service: November 17, 2024
Patient was seen and examined at bedside this morning. Breathing much more comfortably today after being started on steroids and antibiotics.
Objective Data
-
Labs:
Laboratory Results
11/17/24
05:47
WBC 10.8
Hgb 12.0 L
Hct 36.5 L
Plt Count 166
Sodium 133 L
Potassium 4.6
Chloride 99
Carbon Dioxide 27
BUN 16
Creatinine 0.7
Glucose 148 H
Calcium 8.8
Vital Signs:
Vital Signs
Temp Pulse Resp BP Pulse Ox
98.1 F 70 16 109/69 99
11/17/24 11:55 11/17/24 11:55 11/17/24 11:55 11/17/24 11:55 11/17/24 11:55
I&O
11/16/24 11/17/24 11/18/24
06:59 06:59 06:59
Intake Total 960 / 960
Balance 960 / 960
Review of Systems
-
History Source: Patient
All other systems: Reviewed and negative
Respiratory: Reports Cough
Physical Exam
-
General: No Apparent Distress
[2024-11-17 15:04] LABS: Iron 68 ug/dl (49-181)
[2024-11-17 15:15] LABS: Percent Saturation 26 % (20-50); Total Iron Binding Capacity 256 ug/dl (261-462)
[2024-11-17 15:55] VITALS: BP 115/66
--- NOTE | 2024-11-17 16:12 | CM ---
Alert awake oriented patient who lives with his Tish and 5 kids who lives in a 2 story home with 3 step to enter and 8 steps to bed and bathroom. He is independent in driving and in all activities of daily living.He was offered VN he
declined need.He hester cpap rezmed.
No VN hx / No SNF history
Pharmacy [facility]
PCP DR Tolentino
PLAN Home Declined VN
[2024-11-17] MEDS: ROCEPHIN 1000 MG IV (17:26)
[2024-11-17] MEDS: LOVENOX 40 MG SC (17:26)
[2024-11-17] MEDS: STERILE WATER FOR INJECTION 10 ML IV (17:28)
[2024-11-17] MEDS: METHADONE 100 MG/10 ML 165 MG PO (17:28)
[2024-11-17] MEDS: SINGULAIR 10 MG PO (19:54)
[2024-11-17 19:58] VITALS: BP 116/64
[2024-11-17 23:44] VITALS: BP 113/70
[2024-11-18] MEDS: DECADRON 6 MG IV ×2 (02:13→09:17)
[2024-11-18 03:55] VITALS: BP 120/74
[2024-11-18 06:00] VITALS: BMI 26.5
[2024-11-18 06:24] LABS: % Basophils 0.1 % (0-2); % Immature Granulocytes 0.9 % (0-0.5); % Lymphocytes 9.4 % (20.5-51.1); % Monocytes 4.1 % (1.7-9.3); % Neutrophils 85.5 % (42.2-75.2); Absolute Immature Granulocytes 0.1 10^3/uL (0-0.05); Absolute Lymphocytes 1.1 10^3/uL (1.2-3.4); Absolute Monocytes 0.5 10^3/uL (0.1-0.6); Absolute Neutrophils 9.7 10^3/uL (1.4-6.5); Hematocrit 35.4 % (39.0-52.0); Hemoglobin 11.5 g/dL (13.0-18.0); Mean Corp Hgb Conc. 32.5 g/dL (33.0-37.0); Mean Corpuscular Hgb 29.9 pg (27.0-31.0); Mean Corpuscular Volume 92.2 fL (80.0-94.0); Mean Platelet Volume 10.5 fL (7.4-10.4); Nucleated Red Blood Cells % 0 % (-); Platelet Count 166 10^3/uL (130-400); Red Blood Cell Count 3.84 10^6/uL (4.70-6.10); Red Cell Dist. Width 13.9 % (11.5-14.5); White Blood Cell Count 11.4 10^3/uL (4.8-10.8)
[2024-11-18 06:49] LABS: Blood Urea Nitrogen 13 mg/dl (9-20); Calcium 8.9 mg/dl (8.4-10.2); Carbon Dioxide 25 mmol/L (22-30); Chloride 102 mmol/L (98-107); Estimated Creatinine Clearance > 125 ml/min; Glucose 123 mg/dl (70-99); Magnesium 2.2 mg/dl (1.6-2.3); Phosphorus 3.4 mg/dl (2.5-4.5); Potassium 4.6 mmol/L (3.5-5.1); Sodium 134 mmol/L (135-145); eGFR > 60.00
[2024-11-18] MEDS: DUONEB 3 ML INH ×2 (07:08→11:04)
[2024-11-18] MEDS: PULMICORT 0.5 MG INH (07:08)
[2024-11-18] MEDS: METHADONE 100 MG/10 ML 195 MG PO (08:10)
[2024-11-18] MEDS: VIBRAMYCIN 100 MG PO (08:10)
[2024-11-18] MEDS: MUCINEX 600 MG PO (08:10)
--- NOTE | 2024-11-18 09:02 | W.PN.PUL.V3 ---
Today's Communication / Plan
-
Improved
Increase activity
Wean oxygen
Consider changing Decadron to prednisone 50 mg daily with slow taper-patient requesting to be discharged-recommend close outpatient pulmonary follow-up consider Biologics-discussed this with patient
Finite course of antibiotics
Assessment
-
39-year-old male with history of chronic asthma as well as obstructive sleep apnea and prior substance abuse with opioid dependence on chronic methadone presented with increasing shortness of breath and cough found to have significant asthma
exacerbation-pulmonary consulted for asthma exacerbation 11/17/2024.
Asthma exacerbation
Leukocytosis
Okzlsw-sotcilzysz-xskjkmpxux 12.0
Conditions present prior to admission:
Asthma-moderate persistent-on Dulera/Spiriva/albuterol-followed at [place].
Substance abuse in the past/opiate dependence on chronic methadone.
Obstructive sleep apnea on CPAP.
Depression.
Former [id number]-year quit 4 years ago
Plan
Respiratory decompensation due to underlying severe persistent asthma with acute exacerbation
Respiratory status appears to be improving-continues with some wheezing
Wean supplemental oxygen
Increase activity
Singulair continues
Mucinex 600 mg twice daily
Nebulizers-DuoNebs and Pulmicort continue
Decadron 6 mg IV every 8 hours-consider changing to prednisone 50 mg with slow taper-patient anxious to be discharged
Mucus clearing devices
CPAP at night-chronic
Check cultures
Empiric antibiotics-Rocephin and doxycycline-finite course
Methadone chronically
Eventually obtain allergy testing, IgE level, eosinophils, etc.
Consider Biologics such as Xolair -anti-IgE, Nucala-IL-5 inhibitor, Lwlwyso-WW-3 inhibitor, or Dupixent-I L4/13 inhibitor or Tezspire
DVT prophylaxis-on Lovenox
Nutrition
Early mobilization
Outpatient pulmonary/sleep disorders [id number] reports that he follows up in the [place] area-consider Biologics in this frequent steroid dependent exacerbating asthmatic
Diagnostic data:
Chest x-ray 12/11/22-NAD
Chest x-ray 10/26/2023-unremarkable chest
Chest x-ray 11/16/2024-mild subpleural opacification right lower lobe possible mild pneumonia or atelectasis
CT chest 11/30/2022-no pulmonary embolism, mild hazy interstitial airway disease in the right upper lobe and right lower lobe new compared to 11/2021
Subjective Data
-
Date of Service:
Date of Service: November 18, 2024
Chief Complaint: Pulmonary Follow Up, Dyspnea Follow Up and Other (Asthma)
Subjective:
Feels better, wants to go home, still wheezing but he states that he 'always wheezes', no chest pain, productive cough or abdominal pain
Review of Systems
General: Other (Per HPI)
Objective Data
Data Reviewed
Vital Signs / I&O:
Vital Signs
Temp Pulse Resp BP Pulse Ox
97.8 F 84 16 120/74 93
11/18/24 03:55 11/18/24 07:09 11/18/24 07:09 11/18/24 03:55 11/18/24 03:55
Intake and Output
11/17/24 11/18/24 11/19/24
06:59 06:59 06:59
Intake Total 960 / 960 2039
Balance 960 / 960 2039
SaO2: 93
Nasal Cannula flow liters per minute: 2
Physical Exam
General: Respiratory Distress (n) and Comfortable
HEENT: Normocephalic, Anicteric and Moist Mucous Membranes
Cardiovascular: Regular Rhythm
Respiratory: Wheeze (Expiratory), Crackles (n), Rhonchi (n), Non-Labored Respirations, Accessory Resp Muscle Use (n) and Stridor (n)
GI: Soft, Non Distended and Non Tender
Neurology: Awake, Oriented and No Motor Deficits
Skin: Warm, Good Color, Cyanosis, Jaundice (n) and Rash (n)
Labs/Micro/Reports
Lab Data
11/18/24 05:58
11/18/24 05:58
Microbiology
11/16/24 23:01 Nose MRSA Screen - Final
No Methicillin Resistant Staphylococcus aureus isolated.
11/16/24 18:20 Blood/Venous Blood Culture - Preliminary
No Growth in 24 hours- Final report to follow
11/16/24 18:03 Blood/Venous Blood Culture - Preliminary
No Growth in 24 hours- Final report to follow
11/16/24 18:35 Sputum Gram Stain - Preliminary
11/16/24 16:29 Nasal Swab Influenza Types A & B (DESIRE) - Final
Negative for Influenza A & B, NAAT
Negative results must be combined with clinical observations
and patient history.
Nucleic Acid Amplification test (NAAT)performed on the
[employer] platform.
[2024-11-18 10:15] VITALS: BP 126/75
--- NOTE | 2024-11-18 10:41 | PN.CDI ---
CDI
- -
CDI:
Physician Documentation Request
Admit Date: 11/16/24 19:28
Dear Doctor Vega,
Please review the following and provide your response in the progress notes.
Clinical Indicators:
Documentation in the record on _11/17 PN_ includes the diagnosis of acute hypoxic respiratory failure.
- 11/17 PN 'Acute hypoxic respiratory failure...Secondary to community-acquired pneumonia and asthma exacerbation'
- Documented VS 2L O2, SpO2 > 91%
- ER Physician 'mild respiratory distress'
- 11/16 Pulmonary note 'Asthma exacerbation'
- Reported home pulse ox 86%
Please clarify in the Progress Notes:
Acute hypoxic respiratory failure is/was present and is a clinical diagnosis based on (please include this additional support in the medical record)
After study acute hypoxic respiratory failure has been ruled out
Other
Recognized standard criteria for respiratory failure includes:
(Source: [employer] [facility] Jul 2013)
ABGs (1 or more)
�PO2 <60 or RA SpO2 <91%
�PcO2 >50 and pH <7.35
�pO2 decrease or pcO2 increase by 10 mmHg from baseline if known Symptoms:
�Tachypnea, SOB, dyspnea
�Pallor or cyanosis
�Anxiety or restlessness
�Use of accessory muscles
�Retractions (grunting in newborns)
�Unable to speak in complete sentences
Supplemental O2 requirement of 40% (5LPM) or more Intubation is not required
Use of terms such as suspected, likely, concern for, or probable (associated with a specific diagnosis that is being evaluated, monitored, or treated as if it exists) are acceptable and can be coded in the inpatient setting, when documented at the
time of discharge.
Thank you,
Kelton Neal RN
CDI Specialist
Please use your independent medical judgment in providing your response.
--- NOTE | 2024-11-18 11:31 | PN.CDI ---
CDI
- -
CDI:
Physician Documentation Request
Admit Date: 11/16/24 19:28
Dear Doctor Vega,
Please review the following and provide your response in the progress notes.
Clinical Indicators:
- Patient admit for asthma exacerbation and pneumonia with WBC 16.7
- 11/16 H&P 'past medical history of asthma on chronic steroids'
- 11/17 PN 'Labs revealed a leukocytosis of almost 17,000 (although he is on chronic steroids)
- 'Did not feel he is septic'
Please clarify the diagnosis with the above findings including the use of chronic steroids:
Immunosuppressed
Not immunosuppressed
Other
Use of terms such as suspected, likely, concern for, or probable (associated with a specific diagnosis that is being evaluated, monitored, or treated as if it exists) are acceptable and can be coded in the inpatient setting, when documented at the
time of discharge.
Thank you,
Kelton Neal RN
CDI Specialist
Please use your independent medical judgment in providing your response.
--- NOTE | 2024-11-18 11:33 | W.DCSUMMARY ---
Addendum entered and electronically signed by Russel Ferrari, 11/18/24 11:46:
Please clarify the diagnosis with the above findings including the use of chronic steroids:
Not immunosuppressed
Addendum entered and electronically signed by Russel Ferrari, 11/18/24 11:35:
Clarification:
After study acute hypoxic respiratory failure has been ruled out
Original Note:
Discharge Summary
Discharge Data
Date of Admission: 11/16/24
Date of Discharge: 11/18/24
-
Pending Results: No
Hospital Course
Mr. Adams is a 39-year-old male with a medical history of moderate persistent asthma (on 30 mg of prednisone daily at baseline), NSAID exacerbated respiratory disease, and methadone maintenance therapy who presents with progressively worsening
shortness of breath and productive cough. In the ED, he was afebrile and normotensive but tachycardic and mildly hypoxic with a pulse ox of 90% on room air. He was placed on supplemental oxygen. Labs revealed a leukocytosis of almost 17,000
(although he is on chronic steroids) and a mild hyponatremia with a serum sodium of 132. Respiratory panel was negative for influenza and COVID. He was started on antibiotics with ceftriaxone and azithromycin (later changed to doxycycline). He
was given dose of dexamethasone 6 mg IV and bolused 1 L normal saline. He was admitted for further evaluation and management of community-acquired pneumonia and asthma exacerbation.
His bronchospasm significantly improved with above-mentioned treatment. He was able to be weaned off of supplemental oxygen and was breathing comfortably and saturating appropriately on room air. He was transitioned to oral steroids with
prednisone 50 mg with plan for long taper back to his home dose of 30 mg daily. He will be continued on antibiotics for pneumonia to complete a 7-day course. He was evaluated by pulmonology while inpatient who agreed with the above-mentioned plan.
He will need close follow-up with pulmonology in the outpatient setting. He was found to have normocytic anemia with low normal serum iron and TIBC levels. His ferritin and percent saturation levels were normal. Recommend follow-up with his
primary care physician for further monitoring, can start oral iron supplementation after resolution of pneumonia. At time of hospital discharge he was medically stable.
Gen-AAOx3, NAD
HEENT-NC, AT, anicteric, clear oral mm
Neck-supple
CV-reg, no M, +S1/S2
Lungs- mild expiratory wheezes bilaterally
Abd-soft, NT, ND
Musculoskeletal-no edema, no deformity
Skin-warm and dry
Neuro-grossly non-focal
Psych-calm, cooperative
Discharge Plan
-
Patient Disposition: Home (Routine Discharge)
Discharge Diagnosis/Procedures: Moderate to severe persistent asthma with acute exacerbation
Diet: Regular
Activity: No restrictions
Activity Restrictions/Additional Instructions:
Mr. Adams is a 39-year-old male with a medical history of moderate persistent asthma (on 30 mg of prednisone daily at baseline), NSAID exacerbated respiratory disease, and methadone maintenance therapy who presents with progressively worsening
shortness of breath and productive cough. In the ED, he was afebrile and normotensive but tachycardic and mildly hypoxic with a pulse ox of 90% on room air. He was placed on supplemental oxygen. Labs revealed a leukocytosis of almost 17,000
(although he is on chronic steroids) and a mild hyponatremia with a serum sodium of 132. Respiratory panel was negative for influenza and COVID. He was started on antibiotics with ceftriaxone and azithromycin (later changed to doxycycline). He
was given dose of dexamethasone 6 mg IV and bolused 1 L normal saline. He was admitted for further evaluation and management of community-acquired pneumonia and asthma exacerbation.
His bronchospasm significantly improved with above-mentioned treatment. He was able to be weaned off of supplemental oxygen and was breathing comfortably and saturating appropriately on room air. He was transitioned to oral steroids with
prednisone 50 mg with plan for long taper back to his home dose of 30 mg daily. He will be continued on antibiotics for pneumonia to complete a 7-day course. He was evaluated by pulmonology while inpatient who agreed with the above-mentioned plan.
He will need close follow-up with pulmonology in the outpatient setting. He was found to have normocytic anemia with low normal serum iron and TIBC levels. His ferritin and percent saturation levels were normal. Recommend follow-up with his
primary care physician for further monitoring, can start oral iron supplementation after resolution of pneumonia. At time of hospital discharge he was medically stable.
Referrals:
Jevon Tolentino DO [Family Provider] -
Moiz Hebert MD [Active] -
Prescriptions:
New
doxycycline hyclate 100 mg Capsule
100 mg PO Q12 4 Days Qty: 8 0RF
cefpodoxime 200 mg tablet
200 mg PO BID 4 Days Qty: 8 0RF
prednisone 50 mg tablet
50 mg PO DAILY 5 Days Qty: 5 0RF
Rx Instructions:
Start taking 50 mg daily 11/19, transition to 40 mg daily on 11/24
prednisone 20 mg tablet
40 mg PO DAILY 5 Days Qty: 10 0RF
Rx Instructions:
Start taking on 11/24, to be completed 11/28, then resume home dose of 30 mg daily
Continued
albuterol sulfate 1 PUFF HFA aerosol inhaler
2 puff inhalation R Q4HPRN PRN (Reason: Shortness of breath)
methadone [Methadose] 10 MG/ML concentrate
195 mg PO DAILY
Patient Comments:
12/11/2022: goes to [facility] in [phone]. [facility] [place] [phone], [employer] [phone]
12/12/22: dose confirmed with [facility]
methadone [Methadose] 10 MG/ML concentrate
165 mg PO QPM
Patient Comments:
12/11/2022: goes to [facility] in [place] [phone]. Dis[facility] [phone], [employer] [phone]
12/12/22: dose confirmed with [facility]
albuterol sulfate 2.5 MG/3 ML solution for nebulization
2.5 mg inhalation R Q4HPRN PRN (Reason: short of breath, wheezing) Qty: 30 0RF
montelukast 10 mg Tablet
10 mg PO HS
Dulera 200-5 mcg/actuation Hfa Aerosol Inhaler
2 puff INHALATION BID
Spiriva Respimat 2.5 mcg/actuation mist
2 puff INHALATION DAILY
Held
prednisone 10 MG tablet
30 mg PO DAILY
Hold Instructions: Resume prednisone 30 mg daily after completing prednisone taper at discharge
Discharge Orders:
Discharge Patient (As Directed); Ordered 11/18/24
Ordered By: Russel Ferrari
Discharge Date and Time
Print Language: UPPER SORBIAN
[2024-11-18 11:44] VITALS: BP 133/80
--- NOTE | 2024-11-18 11:46 | CM ---
Patient stable for d/c today. Patient declined VN services
No CM needs identified at this time
Plan: Home; no needs
== END 2024-11-18 12:31 | disposition home or self-care (01) | DRG 202 ==
LOC: 4 EAST ACU 19:28
PROVIDERS: Emergency Medicine; Physician Assistant Medical; ADMITTING PHYSICIAN Internal Medicine; EMERGENCY PHYSICIAN Emergency Medicine; FAMILY PHYSICIAN Internal Medicine; OTHER PHYSICIAN Internal Medicine Critical Care Medicine
PROC: 5A09357 Assistance with Respiratory Ventilation, Less than 24 Consecutive Hours, Continuous Positive Airway Pressure (ICD-10-PCS; 2024-11-16)
DX: J45.52 Severe persistent asthma with status asthmaticus (principal); E87.1 Hypo-osmolality and hyponatremia; F11.20 Opioid dependence, uncomplicated; Z11.52 Encounter for screening for COVID-19; Z79.52 Long term (current) use of systemic steroids; F32.A Depression, unspecified; Z87.891 Personal history of nicotine dependence; G47.33 Obstructive sleep apnea (adult) (pediatric); D64.9 Anemia, unspecified
CPT/HCPCS: 71046; 80048; 80053; 82728; 83540; 83550; 83605; 83735; 84100; 85025; 85027; 87040; 87070; 87077; 87147; 87205; 87502; 87811; 94640; 94660; 96365; 96375; 99285